=== PATIENT | female | born 1995 | race Caucasian/White ===

== ENCOUNTER 2018-01-17 19:38 | Emergency (ER) | payer OTHER ==
[2018-01-17] MEDS: IPRATROPIUM (NEB) 0.5 MG/2.5 ML AMP INH (20:55)
[2018-01-17] MEDS: ALBUTEROL 0.5% (NEB) 2.5 MG/0.5 ML AMP INH (20:56)
[2018-01-17] MEDS: DEXAMETHASONE 10 MG/ML 1 ML INJ IM (21:10)
[2018-01-17 21:15] LABS: ADD UMIC YES; UR AMORPHOUS CRYSTAL MODERATE /HPF (NONE SEEN); UR ASCORBIC ACID NEGATIVE (NEGATIVE); UR BACTERIA MODERATE /HPF (NONE SEEN); UR BILIRUBIN (Dip) NEGATIVE (NEGATIVE); UR BLOOD (Dip) NEGATIVE (NEGATIVE); UR CLARITY CLOUDY (CLEAR); UR COLOR YELLOW (YELLOW); UR GLUCOSE (Dip) NEGATIVE (NEGATIVE); UR KETONES (Dip) NEGATIVE (NEGATIVE); UR LEUKOCYTE ESTERASE (Dip) 2+ Leu/ul (NEGATIVE); UR MUCUS FEW /HPF (NONE SEEN); UR NITRITE (Dip) POSITIVE (NEGATIVE); UR RBC 5 /HPF (0-5); UR SQUAMOUS EPITHELIAL CELL MODERATE /HPF (FEW); UR TOTAL PROTEIN (Dip) 1+ mg/dl (NEGATIVE); UR UROBILINOGEN (Dip) 2+ mg/dL (NEGATIVE); UR WBC 141 /HPF (0-5)
[2018-01-17] MEDS: CEFTRIAXONE 1 GM INJ IM (22:43)
[2018-01-17] MEDS: LIDOCAINE 1% (MPF) 5 ML VIAL SC (22:52)
[2018-01-17] MEDS ORDERED: LIDOCAINE 1% (MDV) 20 ML INJ SC (23:00)
== END 2018-01-17 23:03 | disposition home or self-care (01) ==
LOC: FTE 19:38
DX: R06.2 Wheezing (principal); R30.9 Painful micturition, unspecified; F17.210 Nicotine dependence, cigarettes, uncomplicated
CPT/HCPCS: 71045; 81001; 81025; 87591; 94644; 96372; 99284-25